=== PATIENT | female | born 1995 | race African-American/Black ===

== ENCOUNTER 2021-01-17 12:10 | Emergency (ER) | payer MEDICAID ==
[~2021-01-17] VITALS: Ht 157.5 cm; Wt 118.0 kg
[2021-01-17] MEDS ORDERED: ACETAMINOPHEN 325MG TABLET PO STA (13:25)
[2021-01-17 14:03] LABS: CLARITY URINE CLEAR (CLEAR); COLOR URINE YELLOW (YELLOW); KETONES URINE TRACE (NEGATIVE); LEUKOCYTE ESTERASE URINE NEGATIVE (NEGATIVE); NITRITE URINE NEGATIVE (NEGATIVE); OCCULT BLOOD URINE NEGATIVE (NEGATIVE); PROTEIN URINE NEGATIVE (NEGATIVE); SPECIFIC GRAVITY URINE 1.022 (1.005-1.030); UROBILINOGEN URINE 0.2 E.U./dL (0.2-1.0)
[2021-01-17 14:26] LABS: BASOPHILS % 0.8 % (0.0-2.0); EOSINOPHILS % 1.7 % (0.0-5.0); HEMATOCRIT. 32.8 % (36.0-48.0); HEMOGLOBIN. 10.8 g/dL (12.0-16.0); LYMPHOCYTES % 16.7 % (20.0-50.0); MEAN CORPUSCULAR HEMOGLOBIN 28.9 pg (28.0-32.0); MEAN CORPUSCULAR VOLUME 87.5 fL (81.0-99.0); MEAN PLATELET VOLUME 8.1 fl (7.4-10.4); MONOCYTES % 5.5 % (2.0-8.0); NEUTROPHILS % 75.3 % (40.0-76.0); PLATELET 276 x1000/uL (130-400); RED BLOOD CELL COUNT 3.75 mill/uL (4.2-5.4); RED CELL DISTRIBUTION WIDTH 13.4 % (11.6-14.6)
[2021-01-17 14:31] LABS: CHLORIDE 106 mEq/L (98-107)
[2021-01-17 14:55] LABS: B-HCG QUANTITATIVE 2960 mIU/mL (<3)
[2021-01-17 16:43] VITALS: BP 128/77
== END 2021-01-17 16:41 | disposition home or self-care (01) ==
LOC: ER 12:10
DX: O26.891 Other specified pregnancy related conditions, first trimester (principal); R10.11 Right upper quadrant pain; O99.011 Anemia complicating pregnancy, first trimester; O34.81 Maternal care for other abnormalities of pelvic organs, first trimester; N83.201 Unspecified ovarian cyst, right side; Z3A.01 Less than 8 weeks gestation of pregnancy
CPT/HCPCS: 36415; 76705; 76801; 80053; 81003; 84702; 85025; 86850; 86870; 86900; 99285

== ENCOUNTER 2021-01-19 09:47 | Emergency (ER) | payer MEDICAID ==
[~2021-01-19] VITALS: Ht 157.5 cm; Wt 120.0 kg
[2021-01-19 11:50] LABS: BASOPHILS % 0.9 % (0.0-2.0); EOSINOPHILS % 2.6 % (0.0-5.0); HEMATOCRIT. 31.9 % (36.0-48.0); HEMOGLOBIN. 10.6 g/dL (12.0-16.0); LYMPHOCYTES % 22.8 % (20.0-50.0); MEAN CORPUSCULAR HEMOGLOBIN 29.3 pg (28.0-32.0); MEAN CORPUSCULAR VOLUME 87.9 fL (81.0-99.0); MEAN PLATELET VOLUME 8.2 fl (7.4-10.4); MONOCYTES % 5.9 % (2.0-8.0); NEUTROPHILS % 67.8 % (40.0-76.0); PLATELET 295 x1000/uL (130-400); RED BLOOD CELL COUNT 3.63 mill/uL (4.2-5.4); RED CELL DISTRIBUTION WIDTH 13.9 % (11.6-14.6)
[2021-01-19 11:56] LABS: CHLORIDE 108 mEq/L (98-107)
[2021-01-19 12:02] LABS: CLARITY URINE CLEAR (CLEAR); COLOR URINE YELLOW (YELLOW); KETONES URINE NEGATIVE (NEGATIVE); LEUKOCYTE ESTERASE URINE NEGATIVE (NEGATIVE); NITRITE URINE NEGATIVE (NEGATIVE); OCCULT BLOOD URINE NEGATIVE (NEGATIVE); PROTEIN URINE NEGATIVE (NEGATIVE); SPECIFIC GRAVITY URINE 1.025 (1.005-1.030)
[2021-01-19 12:20] LABS: B-HCG QUANTITATIVE 5253 mIU/mL (<3)
[2021-01-19 12:26] VITALS: BP 117/60
== END 2021-01-19 12:50 | disposition home or self-care (01) ==
LOC: ER 09:47
DX: O26.93 Pregnancy related conditions, unspecified, third trimester (principal); Z3A.01 Less than 8 weeks gestation of pregnancy
CPT/HCPCS: 36415; 76801; 80053; 81003; 84702; 85025; 99284

== ENCOUNTER 2021-02-02 10:25 | Emergency (ER) | payer MEDICAID ==
[~2021-02-02] VITALS: Ht 157.5 cm; Wt 115.0 kg
[2021-02-02] MEDS ORDERED: ONDANSETRON 4MG ODT PO STA (11:29)
[2021-02-02] MEDS ORDERED: MORPHINE SULFATE 4 MG/ML CPJ (NOT FOR IM USE) IV STA (11:29)
[2021-02-02] MEDS ORDERED: SODIUM CHLORIDE 0.9% 1,000 ML IV ONE (11:30)
[2021-02-02 12:14] LABS: BASOPHILS % 0.8 % (0.0-2.0); EOSINOPHILS % 1.1 % (0.0-5.0); HEMATOCRIT. 30.8 % (36.0-48.0); HEMOGLOBIN. 10.3 g/dL (12.0-16.0); LYMPHOCYTES % 15.8 % (20.0-50.0); MEAN CORPUSCULAR HEMOGLOBIN 28.8 pg (28.0-32.0); MEAN PLATELET VOLUME 7.9 fl (7.4-10.4); MONOCYTES % 5.9 % (2.0-8.0); NEUTROPHILS % 76.4 % (40.0-76.0); PLATELET 295 x1000/uL (130-400); RED BLOOD CELL COUNT 3.59 mill/uL (4.2-5.4); RED CELL DISTRIBUTION WIDTH 13.4 % (11.6-14.6)
[2021-02-02 12:20] LABS: CLARITY URINE CLEAR (CLEAR); COLOR URINE YELLOW (YELLOW); KETONES URINE 4+ (NEGATIVE); LEUKOCYTE ESTERASE URINE NEGATIVE (NEGATIVE); NITRITE URINE NEGATIVE (NEGATIVE); OCCULT BLOOD URINE NEGATIVE (NEGATIVE); PROTEIN URINE TRACE (NEGATIVE); SPECIFIC GRAVITY URINE 1.026 (1.005-1.030)
[2021-02-02 12:21] LABS: CHLORIDE 104 mEq/L (98-107)
[2021-02-02 12:24] LABS: ETHANOL BLOOD < 10 mg/dL
[2021-02-02 12:26] LABS: INR 1.1; PROTHROMBIN TIME 11.4 sec (9.6-11.0)
[2021-02-02 12:29] LABS: HCG SCREEN POSITIVE
[2021-02-02 12:46] LABS: *AMPHETAMINES SCREEN URINE NEGATIVE (NEGATIVE)
[2021-02-02 12:47] LABS: *BARBITURATES SCREEN URINE NEGATIVE (NEGATIVE); *BENZODIAZEPINES SCREEN URINE NEGATIVE (NEGATIVE); *COCAINE SCREEN URINE NEGATIVE (NEGATIVE); METHADONE URINE SCREEN NEGATIVE (NEGATIVE); OPIATES URINE SCREEN NEGATIVE (NEGATIVE); PHENCYCLIDINE URINE SCREEN NEGATIVE (NEGATIVE)
[2021-02-02 12:51] LABS: CANNABINOID URINE SCREEN PRESUMTIVE POSITIVE (NEGATIVE)
[2021-02-02] MEDS ORDERED: ACETAMINOPHEN 325MG TABLET PO ONE (13:00)
[2021-02-02] MEDS ORDERED: AMOXICILLIN 500 MG CAPSULE PO ONE (13:30)
[2021-02-02] MEDS ORDERED: AMOX-494 MT (13:52)
[2021-02-02] MEDS ORDERED: LABETALOL 5MG/ML SYR 20 MG/4 ML SYRINGE IV ONE (14:15)
[2021-02-02] MEDS ORDERED: CEPH500T MT (14:25)
[2021-02-02 17:02] VITALS: BP 108/65
[2021-02-02 17:32] LABS: HCG SCREEN POSITIVE
== END 2021-02-02 17:06 | disposition home or self-care (01) ==
LOC: ER 10:25
DX: O23.41 Unspecified infection of urinary tract in pregnancy, first trimester (principal); Z3A.09 9 weeks gestation of pregnancy
CPT/HCPCS: 36415; 76700; 76801; 76817; 80053; 80305; 80320; 81003; 83605; 83690; 84703; 85025; 85610; 86850; 86900; 86901; 96360; 99285; J7030; G0480